=== PATIENT | female | born 1995 | race Caucasian/White ===

== ENCOUNTER 2018-06-29 08:01 | Inpatient (IN) | payer OTHER ==
[2018-06-29] MEDS ORDERED: Butorphanol Tartrate 1 MG/ML VIAL SLOW IVP PRN (20:32)
[2018-06-29] MEDS ORDERED: NS w/ Oxytocin 10 units 500 ML IV SCH (20:32)
[2018-06-29] MEDS ORDERED: Promethazine HCl 25 MG/ML VIAL IM PRN (20:32)
[2018-06-29] MEDS ORDERED: Lidocaine 1% (PF) 30 ML VIAL SC PRN (20:32)
[2018-06-29] MEDS ORDERED: Ondansetron HCl/PF 4 MG/2 ML Vial IVP PRN (20:32)
[2018-06-29] MEDS ORDERED: Diphenoxylate HCl/Atropine Tablet PO PRN ×2 (20:32)
[2018-06-29] MEDS ORDERED: NS / Oxytocin 40 units/1000ml 1,000 ML IV PRN (20:32)
[2018-06-29] MEDS ORDERED: Acetaminophen 500 MG TAB PO PRN (20:32)
[2018-06-29] MEDS ORDERED: Zolpidem Tartrate 5 MG TAB PO PRN (20:32)
[2018-06-29] MEDS ORDERED: Docusate 100 MG CAP PO PRN (20:32)
[2018-06-29] MEDS ORDERED: HYDROcodone/Acetaminophen 5/325 mg Tablet PO PRN ×2 (20:32)
[2018-06-29] MEDS ORDERED: Misoprostol 200 MCG TAB PR PRN (20:32)
[2018-06-29] MEDS ORDERED: Ibuprofen 800 MG TAB PO PRN (20:32)
[2018-06-29 20:49] VITALS: BMI 23.3
[2018-06-29 21:40] LABS: Hemoglobin 12.6 g/dL (12.0-16.0); Mean Corpuscular HGB CONC 35.9 g/dL (32.0-36.0); Mean Corpuscular Hemoglobin 31.4 pg (27.0-31.0); Mean Corpuscular Volume 87.7 fL (78.0-98.0); Mean Platelet Volume 7.5 fL (7.4-10.4); Platelet Count 195 thou/uL (130-400); RBC Distribution Width 11.1 % (11.5-14.5); Red Blood Cell (RBC) Count 4.02 mill/uL (4.20-5.40); White Blood Cell (WBC) Count 10.3 thou/uL (4.8-10.8)
[2018-06-29] MEDS: Lactated Ringer's 1,000 ML IV SCH (21:55)
[2018-06-29] MEDS: Misoprostol 100 MCG TAB VAG SCH (21:55)
[2018-06-29 22:22] LABS: Syphilis Antibody Nonreactive (Nonreactive); Syphilis Antibody Index 0.04 S/CO (<1.00 Non-Reactive)
[2018-06-29 23:14] LABS: HBSAg Index 0.18 S/CO (0-0.99); Hep B Surf Ag Non-Reactive S/CO (NonReactive)
[2018-06-30] MEDS: Misoprostol 100 MCG TAB VAG SCH ×4 (01:07→15:33)
[2018-06-30] MEDS ORDERED: DISCONTINUE ALL PREVIOUS NARCOTICS FS SCH (02:30)
[2018-06-30] MEDS: Bupivacaine 0.5% 20 ML, fentaNYL Citrate/PF 400 MCG in Sodium Chloride 0.9% 72 ML EPIDURAL SCH ×2 (03:03→07:49)
[2018-06-30] MEDS: Lactated Ringer's 1,000 ML IV SCH ×2 (03:12→09:11)
[2018-06-30] MEDS ORDERED: Lactated Ringer's 500 ML IV PRN (05:40)
[2018-06-30] MEDS ORDERED: Acetaminophen 325 MG TAB PO PRN (05:40)
[2018-06-30] MEDS ORDERED: Promethazine HCl 25 MG/ML VIAL IM PRN (05:40)
[2018-06-30] MEDS ORDERED: diphenhydrAMINE 50 MG/ML VIAL IVP PRN (05:40)
[2018-06-30] MEDS ORDERED: Ondansetron HCl/PF 4 MG/2 ML Vial IVP PRN ×2 (05:40→11:59)
[2018-06-30] MEDS ORDERED: ePHEDrine/0.9% NaCl/PF SYRINGE 50 mg/10 ml SLOW IVP PRN (05:40)
[2018-06-30] MEDS ORDERED: Naloxone HCl 0.4 mg/ml Vial IVP PRN ×2 (05:40)
[2018-06-30] MEDS ORDERED: Eucerin (Mineral Oil/Petrolatum,White) 30 gm Jar TOP PRN (05:40)
[2018-06-30] MEDS ORDERED: Communication Order-Pharmacy FS SCH (05:45)
[2018-06-30] MEDS ORDERED: fentaNYL Citrate/PF 400 MCG, Bupivacaine 0.5% 20 ML in Sodium Chloride 0.9% 72 ML EPIDURAL SCH (05:45)
[2018-06-30] MEDS ORDERED: Lidocaine 1% (PF) 30 ML VIAL ONE (09:27)
[2018-06-30] MEDS ORDERED: Benzocaine/Menthol 20-0.5% 60 ML CAN TOP PRN (11:59)
[2018-06-30] MEDS ORDERED: Bisacodyl 10 MG SUPP PR PRN (11:59)
[2018-06-30] MEDS ORDERED: Adacel (T-DAP) 0.5 ML VIAL IM ONE (11:59)
[2018-06-30] MEDS ORDERED: Acetaminophen/Codeine 30-300mg Tablet PO PRN ×2 (11:59)
[2018-06-30] MEDS ORDERED: Zolpidem Tartrate 5 MG TAB PO PRN (11:59)
[2018-06-30] MEDS ORDERED: Milk Of Magnesia 30 ML UDCUP PO PRN (11:59)
[2018-06-30] MEDS ORDERED: Preparation H Ointment 28 GM TUBE PR PRN (11:59)
[2018-06-30] MEDS ORDERED: diphenhydrAMINE 25 MG CAP PO PRN (11:59)
[2018-06-30] MEDS ORDERED: NS / Oxytocin 40 units/1000ml 1,000 ML IV SCH (12:00)
[2018-06-30] MEDS: Ibuprofen 800 MG TAB PO SCH ×2 (15:52→22:08)
[2018-06-30] MEDS: Ferrous Sulfate 325 MG TAB PO SCH (17:29)
[2018-06-30] MEDS ORDERED: Sodium Chloride 0.9% 0 ML ONE (20:49)
[2018-06-30] MEDS: Docusate Calcium (SURFAK) 240 MG CAP PO SCH (22:08)
[2018-07-01] MEDS: Ibuprofen 800 MG TAB PO SCH ×3 (06:01→21:03)
[2018-07-01] MEDS: Ferrous Sulfate 325 MG TAB PO SCH ×2 (07:53→14:13)
[2018-07-01] MEDS: Docusate Calcium (SURFAK) 240 MG CAP PO SCH ×2 (09:27→21:03)
[2018-07-01] MEDS: Prenatal Vitamin 1 TAB PO SCH (09:27)
[2018-07-02] MEDS: Ibuprofen 800 MG TAB PO SCH (05:10)
[2018-07-02 08:55] VITALS: BP 118/57; TEMP 98.6
[2018-07-02] MEDS: Docusate Calcium (SURFAK) 240 MG CAP PO SCH (09:22)
[2018-07-02] MEDS: Prenatal Vitamin 1 TAB PO SCH (09:22)
[2018-07-02] MEDS: Ferrous Sulfate 325 MG TAB PO SCH (09:24)
== END 2018-07-02 14:00 | disposition home or self-care (01) | DRG 775 ==
LOC: L&D 19:58 → 3SW 06-30 15:07
PROVIDERS: ADMIT Obstetrics & Gynecology; ATTEND Obstetrics & Gynecology
PROC: 10E0XZZ Delivery of Products of Conception, External Approach (ICD-10-PCS; principal; 2018-06-30)
PROC: 3E0P7VZ Introduction of Hormone into Female Reproductive, Via Natural or Artificial Opening (ICD-10-PCS; 2018-06-30)
PROC: 0HQ9XZZ Repair Perineum Skin, External Approach (ICD-10-PCS; 2018-06-30)
DX: O70.0 First degree perineal laceration during delivery (principal); Z3A.39 39 weeks gestation of pregnancy; Z37.0 Single live birth
CPT/HCPCS: 36415; 51702; 85027; 86780; 86850; 86900; 86901; 87340; 90715; A4216; J0595; J2001; J2405; J3010; J3490; J7050